=== PATIENT | male | born 1980 | race Caucasian/White ===

== ENCOUNTER 2016-11-13 17:57 | Emergency (ER) | payer OTHER ==
[~2016-11-13] VITALS: Ht 167.6 cm; Wt 61.1 kg
[~2016-11-13 17:57] MED LIST: OMEP20CA9 PO; PROM5SYR2 PO; RANI150T9 PO
[2016-11-13 18:39] VITALS: Ht 167.6 cm; Wt 61.1 kg
[2016-11-13] MEDS ORDERED: OMEP40CA6 PO (19:46)
--- NOTE | 2016-11-13 20:00 | ERD ---
ER Documentation Chief Complaint Date/Time DATE: 11/13/16 TIME: 19:59 Chief Complaint RUQ abd pain x 2 days HPI 36-year-old male. [place]ish-speaking. [employer] Teacher used. The patient describes at least 30 days of symptoms of epigastric and right upper quadrant abdominal discomfort that is constant, intermittent throughout the day. Occasionally postprandial. Patient describes ultrasound of the gallbladder, laboratory testing that was unrevealing. He was diagnosed with gastritis. He is unsure if he is taking medications at this time. He denies any hematemesis or melena. Symptoms are unchanged from baseline. ROS All systems reviewed and are negative except as per history of present illness. Medications Home Meds Active Scripts Omeprazole* (Omeprazole*) 40 Mg Capsule., 40 MG PO DAILY, #30 CAP Prov:VERONICA MCGOVERN MD 11/13/16 Promethazine HCl/Codeine (Prometh-Codein 6.25-10 mg/5 ml) 5 Ml Syrup, 5 ML PO QHS, #5 Prov:GUS FORMAN PA-C 06/27/16 Ranitidine Hcl* (Zantac*) 150 Mg Tablet, 150 MG PO BID Y for DISTENSION/GAS/ BLOATING, #30 TAB Prov:PARVEZ LARSEN PA-C 01/08/15 Omeprazole* (Prilosec*) 20 Mg Capsule., 20 MG PO BID, #30 CAP Prov:PARVEZ LARSEN PA-C 01/08/15 Allergies Allergies: Coded Allergies: No Known Allergy (Unverified , 06/27/16) PMhx/Soc Medical and Surgical Hx: pt denies Medical Hx, pt denies Surgical Hx History of Surgery: No Anesthesia Reaction: No Hx Neurological Disorder: No Hx Respiratory Disorders: No Hx Cardiac Disorders: No Hx Psychiatric Problems: No Hx Miscellaneous Medical Probl: No Hx Alcohol Use: No Hx Substance Use: No Hx Tobacco Use: No Smoking Status: Never smoker FmHx Family History: No diabetes Physical Exam Vitals Vital Signs Date Time Temp Pulse Resp B/P Pulse Ox O2 Delivery O2 Flow Rate FiO2 11/13/16 18:39 98.8 74 20 132/71 100 Physical Exam General: Well developed, well nourished, no acute distress Head: Normocephalic, atraumatic. Eyes: Pupils equally reactive, EOM intact ENT: Moist mucous membranes Neck: Supple, no lymphadenopathy Respiratory: Lungs clear bilaterally, no distress Cardiovascular: RRR, no murmurs, rubs, or gallops Abdominal: Soft, non-tender, non-distended, no peritoneal signs, negative Valderrama sign, no tenderness to McBurney's point : Deferred MSK: No edema, no unilateral swelling, 5/5 strength Neurologic: Alert and oriented, moving all extremities, normal speech, no focal weakness, no cerebellar signs Skin: No rash Psych: Normal mood Procedures/MDM The patient presents with epigastric abdominal pain with a history of gastritis. He has had a thorough evaluation including ultrasound, laboratory testing. This does not appear to be consistent with biliary colic, acute cholecystitis or other acute intra-abdominal process. The patient has a benign abdominal exam is hemodynamically stable. At this point I believe the next step would be a GI consultation with likely endoscopy. The patient will be started on a PPI. I do not believe the laboratory testing or diagnostic imaging is indicated during this ER visit given recent evaluation as described above. The patient was advised to return for any worsening symptoms. We discussed follow up with the patient's primary care doctor within 24 to 48 hours as needed. We also discussed return to the emergency room for worsening symptoms or worsening condition. Outpatient referral: Gastroenterology Discharge Medications: PPI Departure Diagnosis: Primary Impression: Gastritis Gastritis type: unspecified gastritis Chronicity: chronic Gastritis bleeding: without bleeding Qualified Code: K29.50 - Chronic gastritis without bleeding, unspecified gastritis type Condition: Stable Patient Instructions: Gastritis Vs. Ulcer Referrals: MEHUL SULLIVAN MD, [facility] () Usted se vickers hecho un examen mdico de control que le indica que no est en nick condicin que requiera tratamiento urgente en el Departamento de Emergencia. Un estudio ms profundo y el tratamiento de dent condicin pueden esperar sin ningn riesgo hasta que usted sea atendida/o en el consultorio de dent mdico o nick cl leslie. Es responsabilidad suya arreglar nick radha para el seguimiento del susan. MANEJO DE CONDICIONES NO URGENTES EN EL FUTURO 1) Si usted tiene un mdico de atencin primaria: Usted debera llamar a dent mdico de atencin primaria antes de venir al departamento de emergencia. Despus de las horas de consultorio, dent doctor o dent asociado/a est disponible por telfono. El mdico o enfermero de lion en el servicio telefnico puede asesorarle por milena medio para atender el problema, o susan contrario se puede programar nick radha. 2) Si usted no tiene un mdico de atencin primaria: Llame al mdico o clnica de referencia que aparece abajo hannah las horas de consultorio para hacer nick radha para que le vean. CLINICAS: [facility] [phone] [facility] [phone] [facility] [phone] [facility] [phone] [place] [id number] [phone] [facility] [phone] [address] [facility]. [facility] () Usted se vickers hecho un examen mdico de control que le indica que no est en nick condicin que requiera tratamiento urgente en el Departamento de Emergencia. Un estudio ms profundo y el tratamiento de dent condicin pueden esperar sin ningn riesgo hasta que usted sea atendida/o en el consultorio de dent mdico o nick cl leslie. Es responsabilidad suya arreglar nick radha para el seguimiento del susan. MANEJO DE CONDICIONES NO URGENTES EN EL FUTURO 1) Si usted tiene un mdico de atencin primaria: Usted debera llamar a dent mdico de atencin primaria antes de venir al departamento de emergencia. Despus de las horas de consultorio, dent doctor o dent asociado/a est disponible por telfono. El mdico o enfermero de lion en el servicio telefnico puede asesorarle por milena medio para atender el problema, o susan contrario se puede programar nick radha. 2) Si usted no tiene un mdico de atencin primaria: Llame al mdico o condado institucions de referencia que aparece abajo hannah las horas de consultorio para hacer nick radha para que le vean. SI USTED NO PUEDE PAGAR PARA BRYANT UN MEDICO puede ir a: [facility] [address] [place] [address] [facility] [address] [place] [address] [facility] [address] [place] [address] [facility] [facility] [address] [place], [place] [id number] Additional Instructions: Llame al doctor nombrado abajo (Referral Sources) MAANA y hakeem nick RADHA PARA DENTRO DE NICK SEMANA. Dgale a la secretaria que nosotros le instruimos hacer esta radha.Avise o llame si dent condicin se empeora antes de la radha. VERONICA MCGOVERN MD Nov 13, 2016 20:00
[2016-11-13 20:04] VITALS: BP 124/68; PULSE 68; RESP 18; TEMP 98.9
== END 2016-11-13 20:09 | disposition home or self-care (01) ==
LOC: FTE 17:57
DX: K29.50 Unspecified chronic gastritis without bleeding (principal)
CPT/HCPCS: 99283